=== PATIENT | female | born 1950 | race Two or more races ===

== ENCOUNTER 2018-04-25 01:42 | Emergency (ER) | payer SELFPAY ==
[~2018-04-25] VITALS: Ht 162.6 cm; Wt 107.0 kg
[2018-04-25] MEDS ORDERED: TRAMADOL HCL50 MG ORAL (01:43)
[2018-04-25 01:52] VITALS: BP 159/82
--- NOTE | 2018-04-25 01:57 | NUR ---
ER Nurse Note: Pt biba [id number] from the [place] c/o lower mid back pain. Pt stated she felt pain 10/10 with ADLs. Pt a&ox4, VSS, no signs of distress. Pt able to ambulate with assistance. Pt has full range of motion in all extremities. Pt stated no recent falls, no trauma, Hx of arthritis. ERMD at pt side; will continue to [facility].
[2018-04-25] MEDS ORDERED: Morphine Sulfate 2mg/ml Inj(IV/IM USE ONLY) IM ONE (02:00)
--- NOTE | 2018-04-25 02:01 | Emergency Room Report ---
History of Present Illness General Chief Complaint: Lower Back Pain or Injury Source: Patient Present Illness HPI Is a 68-year-old female with history of obesity and lower back pain. She is currently taking tramadol for it. She called 911 because of lower back pain. His been an ongoing problem but worse the last week. She was at [facility] 4 days ago. She was also at [facility] [place]. She claimed that she was on [employer] [place] and developed back pain. She called 911. She says she lives in the [place] and was visiting here. Her history is inconsistent since it is now 2 AM and she claimed that she came down here to look at shops and to drinking coffee. She said that when she was in the other ERs, she had x-ray and CT scan of her back. Told that she has arthritis. She denies any incontinence of bowel or urine. Pain is 9 out of 10. No radiation. Localized the lower back. Denies any other complaint. Walking makes it worse. Rest made it better. Allergies: Coded Allergies: No Known Allergies (Unverified , 04/25/18) Patient History Past Medical History: see triage record, old chart reviewed Past Surgical History: other Pertinent Family History: none Social History: Denies: smoking Now: No Immunizations: other Reviewed Nursing Documentation: PMH: Agreed; PSxH: Agreed Nursing Documentation-PM Past Medical History: No History, Except For Review of Systems Eye: Denies: eye pain, blurred vision ENT: Denies: ear pain, nose congestion, throat swelling Respiratory: Denies: cough, shortness of breath Cardiovascular: Denies: chest pain, palpitations Gastrointestinal: Denies: abdominal pain, diarrhea, nausea, vomiting Musculoskeletal: Reports: back pain; Denies: joint pain Skin: Denies: rash Neurological: Denies: headache, numbness Endocrine: Denies: increased thirst, increased urine Hematologic/Lymphatic: Denies: easy bruising All Other Systems: negative except mentioned in HPI Physical Exam Vital Signs Date Time Temp Pulse Resp B/P (MAP) Pulse Ox O2 Delivery O2 Flow Rate FiO2 04/25/18 01:38 98.1 64 17 96 vitals unremarkable except for high blood pressure Sp02 EP Interpretation: reviewed, normal General Appearance: well appearing, no apparent distress, alert Head: normocephalic, atraumatic Eyes: bilateral eye PERRL, bilateral eye EOMI ENT: hearing grossly normal, normal pharynx Neck: full range of motion, supple, no meningismus Respiratory: chest non-tender, lungs clear, normal breath sounds Cardiovascular #1: regular rate, rhythm, no murmur Gastrointestinal: normal bowel sounds, non tender, no mass, no organomegaly, no bruit, non-distended Musculoskeletal: back normal, gait/station normal, normal range of motion Psychiatric: mood/affect normal Skin: warm/dry Medical Decision Making Diagnostic Impression: Primary Impression: Low back pain Qualified Codes: M54.5 - Low back pain ER Course Patient with lower back pain. No evidence of any cauda equina syndrome, spinal epidural abscess or neoplastic process. Pain is better after a dose of morphine. We'll discharge home in the morning. Patient said she will take the bus. Last Vital Signs Date Time Temp Pulse Resp B/P (MAP) Pulse Ox O2 Delivery O2 Flow Rate FiO2 04/25/18 01:38 98.1 64 17 96 Status: improved Disposition: HOME, SELF-CARE Condition: Stable Patient Instructions: Back Pain, Adult Additional Instructions: Follow-up your doctor in 7 days. Continue with your tramadol. Return if worse. Sav Fuentes MD Apr 25, 2018 02:01
[2018-04-25 03:25] VITALS: BP 160/76
--- NOTE | 2018-04-25 03:25 | NUR ---
ER Nurse Note: Pt asleep, VSS, no signs of distress, no complain of pain. All orders completed per ERMD orders. Bed in lowest position, all safety measures met. Will continue to [facility].
[2018-04-25 05:20] VITALS: BP 136/74
--- NOTE | 2018-04-25 05:20 | NUR ---
ER Nurse Note: Pt seen, treated, medically cleared for discharge by ERMD. Discharge instructions given with repeat verbalization by pt. Instructed pt to follow up with primary care provider within one week. Pt a&ox4, VSS, no signs of distress; pt has a slow, steady gait with assistative device. ID removed. All belnongings taken; left via own transportation.
== END 2018-04-25 05:20 | disposition home or self-care (01) ==
LOC: EDBD 01:42 → EMR 01:57
DX: M54.5 Low back pain (principal)
CPT/HCPCS: 96372; 99291; J2270